=== PATIENT | male | born 1975 | race Caucasian/White ===

== ENCOUNTER 2021-05-06 10:03 | Emergency (ER) | payer BC ==
[~2021-05-06] VITALS: Ht 182.9 cm; Wt 68.2 kg
[~2021-05-06 10:03] MED LIST: NO HOME MEDICATIONS
[2021-05-06 10:14] VITALS: TEMP 98.8
[2021-05-06 11:10] LABS: HEMOGLOBIN 10.2 g/dl (13.5-18.0); MEAN CELL VOLUME 86 fl (80.0-100.0); MEAN CORPUSCULAR HEMOGLOBIN 29 pg (27.0-31.0); MEAN CORPUSCULAR HGB CONC 33 g/dl (33.0-37.0); MEAN PLATELET VOLUME 8.9 fl (7.4-10.4); PLATELET COUNT 297 K/mm3 (130-400); RED BLOOD COUNT 3.58 M/mm3 (4.20-5.60); REDCELL DISTRIBUTION WIDTH-CV 13.1 % (11.5-14.5)
[2021-05-06 11:13] LABS: HEMATOCRIT 30.8 % (42.0-52.0)
[2021-05-06 11:15] LABS: ALBUMIN 4.1 gm/dL (3.5-5.0); BILIRUBIN,TOTAL 0.7 mg/dL (0.0-1.0); CALCIUM 9.2 mg/dL (8.4-10.2); CREATININE, serum 0.57 (0.66-1.25); POTASSIUM 4.1 mmol/L (3.4-5.0); TOTAL PROTEIN 7.1 gm/dL (6.4-8.2)
[2021-05-06 11:54] LABS: BASOPHIL 1 % (0-2); EOSINOPHIL 5 % (0-4); LYMPHOCYTE 52 % (20.0-51.0); NEUTROPHILS 35 % (42.0-75.2)
[2021-05-06 11:55] LABS: OVALOCYTES 1+; PLATELET ESTIMATE NORMAL (NORMAL); POIKILOCYTOSIS 1+
[2021-05-06 16:00] VITALS: BP 133/72; PULSE 75
== END 2021-05-06 16:00 | disposition home or self-care (01) ==
LOC: COL.ER 10:03
PROVIDERS: Physician Assistant
DX: C20 Malignant neoplasm of rectum (principal); R19.8 Other specified symptoms and signs involving the digestive system and abdomen; C78.01 Secondary malignant neoplasm of right lung; C78.02 Secondary malignant neoplasm of left lung; D72.819 Decreased white blood cell count, unspecified; Z51.11 Encounter for antineoplastic chemotherapy
CPT/HCPCS: J1170; J7120; Q9967

== ENCOUNTER 2021-12-09 19:22 | Observation (INO) | payer OTHER ==
[~2021-12-09] VITALS: Ht 182.9 cm; Wt 59.1 kg
[2021-12-09 19:59] LABS: BASO % 0.4 % (0.0-2.0); EOS % 0.3 % (0.0-4.0); GRAN # 8.5 K/mm3 (1.4-6.5); LYMPH # 0.7 K/mm3 (1.2-3.4); LYMPH % 6.9 % (20.0-51.0); MEAN CELL VOLUME 88 fl (80.0-100.0); MEAN CORPUSCULAR HGB CONC 33 g/dl (33.0-37.0); MEAN PLATELET VOLUME 9.2 fl (7.4-10.4); MONO # 0.5 K/mm3 (0.1-0.6); PLATELET COUNT 370 K/mm3 (130-400); RED BLOOD COUNT 3.32 M/mm3 (4.20-5.60); REDCELL DISTRIBUTION WIDTH-CV 13.2 % (11.5-14.5)
[2021-12-09 20:00] LABS: HEMATOCRIT 29.3 % (42.0-52.0); HEMOGLOBIN 9.8 g/dl (13.5-18.0); MEAN CORPUSCULAR HEMOGLOBIN 30 pg (27-31)
[2021-12-09 20:16] LABS: ALANINE AMINOTRANSFERASE 8 U/L (0-55); ALBUMIN 3.3 gm/dL (3.5-5.0); ALKALINE PHOSPHATASE 72 U/L (40-150); ANION GAP 13 mmol/L (7-16); AST,SGOT 16 U/L (5-34); BILIRUBIN,TOTAL 0.3 mg/dL (0.2-1.2); BLOOD UREA NITROGEN 10 mg/dL (9-21); C-REACTIVE PROTEIN 0.62 mg/dL (0.00-0.50); CALCIUM 9.1 mg/dL (8.4-10.2); CARBON DIOXIDE 22 mmol/L (22-29); CHLORIDE 101 mmol/L (98-107); CREATININE, serum 0.71 mg/dL (0.72-1.25); GLUCOSE 127 mg/dL (70-99); POTASSIUM 4.3 mmol/L (3.5-4.5); SODIUM 136 mmol/L (136-145); TOTAL PROTEIN 6.9 gm/dL (6.2-8.1)
[2021-12-09 20:31] LABS: TROPONIN-I < 0.010 ng/mL (0.00-0.033)
[2021-12-09] MEDS ORDERED: MSIR30 MG PO (23:47)
[2021-12-09] MEDS ORDERED: RESTORIL30 MG PO (23:47)
[2021-12-09] MEDS ORDERED: FENTANYL 25 MCG TD (23:48)
[2021-12-09] MEDS ORDERED: FENTANYL 100MCG TD (23:48)
[2021-12-09] MEDS ORDERED: COLACE 100100 MG/CAP PO (23:48)
[2021-12-09] MEDS ORDERED: MOVANTIK25 MG PO (23:49)
--- NOTE | 2021-12-10 01:15 | NUR ---
Pt. arrived to the floor via wheelchair. Pt. is A&OX3. assessment complete. INT to lt. upper arm patent. Pt. denies pain or other needs, call light within reach.
[2021-12-10 01:37] VITALS: BP 112/68; PULSE 73; TEMP 98.2
[2021-12-10 02:23] LABS: HEMATOCRIT 27.6 % (42.0-52.0); HEMOGLOBIN 8.9 g/dl (13.5-18.0)
[2021-12-10 03:56] VITALS: BP 121/82; PULSE 78; TEMP 98.3
[2021-12-10 06:59] LABS: BASO % 0.4 % (0.0-2.0); EOS % 0.5 % (0.0-4.0); GRAN # 6.6 K/mm3 (1.4-6.5); GRAN % 82.1 % (42.2-75.2); LYMPH # 0.8 K/mm3 (1.2-3.4); LYMPH % 10.1 % (20.0-51.0); MEAN CELL VOLUME 91 fl (80.0-100.0); MEAN CORPUSCULAR HGB CONC 33 g/dl (33.0-37.0); MEAN PLATELET VOLUME 9.7 fl (7.4-10.4); MONO # 0.5 K/mm3 (0.1-0.6); MONO % 6.5 % (1.7-9.3); PLATELET COUNT 301 K/mm3 (130-400); RED BLOOD COUNT 2.66 M/mm3 (4.20-5.60); REDCELL DISTRIBUTION WIDTH-CV 13.2 % (11.5-14.5)
[2021-12-10 07:08] LABS: HEMATOCRIT 24.1 % (42.0-52.0); HEMOGLOBIN 7.9 g/dl (13.5-18.0); MEAN CORPUSCULAR HEMOGLOBIN 30 pg (27-31)
[2021-12-10 07:10] LABS: CALCIUM 8.2 mg/dL (8.4-10.2); CREATININE, serum 0.6 mg/dL (0.72-1.25); POTASSIUM 3.8 mmol/L (3.5-4.5)
[2021-12-10 08:00] VITALS: BP 127/85; PULSE 72; TEMP 98.3
--- NOTE | 2021-12-10 09:43 | NUR ---
Patietn resting in bed. His at bedside. Patient reports being tired, from a long night. Pain is at his chronic level of 6. New pain patches per orders. Water provided & warm blanket for comfort. He denies being dizzy or light headed at this time. Will monitor.
--- NOTE | 2021-12-10 10:30 | NUR ---
Initial visit; Patient and his thanked Spool Cleaner for looking in on him and offering God's blessings. Patient was receptive to Spool Cleaner keeping him in her prayers.
[2021-12-10] MEDS ORDERED: FERRO-TIME325 MG PO (10:57)
--- NOTE | 2021-12-10 11:25 | NUR ---
Deputy Commonwealth'S Attorney met with patient to discuss discharge planning. Patient lives in [place] with his , Kassidy (ph#[phone]) who is at bedside. Patient does not have a primary care physician but sees Dr. Viera regularly. [facility] and does not use any DME. Patient reports he has Advance Directives completed at home. Patient is independent with ADLS and plans to return home upon discharge, which will be today.
--- NOTE | 2021-12-10 11:45 | NUR ---
Patient ready for dischagre. rounded, discharge orders obtained. Patient ready to get home. he tolerated clear liquids without problems. Iv DC. Tele off. Vss. Lianne given discharge teaching, we reviewed new script for iron & side effects. Patient to follow up with as scheduled. patient wheeled out with all belongings. His taking him home.
== END 2021-12-10 12:15 | disposition home or self-care (01) ==
LOC: COL.ER 19:22 → SURG 23:27
PROVIDERS: Emergency Medicine; Nurse Practitioner Family; ADMIT Internal Medicine
DX: K62.5 Hemorrhage of anus and rectum (principal); R55 Syncope and collapse; D62 Acute posthemorrhagic anemia; C20 Malignant neoplasm of rectum; C78.00 Secondary malignant neoplasm of unspecified lung; G47.00 Insomnia, unspecified; K59.09 Other constipation; Z79.891 Long term (current) use of opiate analgesic; Z87.891 Personal history of nicotine dependence; Z79.899 Other long term (current) drug therapy; Z20.822 Contact with and (suspected) exposure to COVID-19
CPT/HCPCS: 99222-AI; G0378; J2212; J7030; Q9967